=== PATIENT | female | born 1995 | race Caucasian/White ===

== ENCOUNTER 2020-09-20 18:04 | Inpatient (IN) | payer OTHER ==
[~2020-09-20] VITALS: Ht 162.6 cm; Wt 56.2 kg
--- NOTE | 2020-09-20 18:15 | NUR ---
"was called by MD to come in for Abnormal blood and possible transfusion" +BARNETT/Lightheaded Dizzy. Patient a/ox4, breathing even and unlabored, no sob noted, needs attended.
[2020-09-20] MEDS ORDERED: IV NS 0.9% 1,000 ML BAG IV ONE (18:30)
--- NOTE | 2020-09-20 18:38 | NUR ---
iv line established, blood drawn and sent to lab.
[2020-09-20 18:43] LABS: BASOPHILS # (AUTO) 0.1 /CMM (0.0-0.2); BASOPHILS % (AUTO) 0.6 % (0.0-2.0); NEUTROPHILS # (AUTO) 5.1 /CMM (1.8-8.9); WHITE BLOOD COUNT (AUTO) 8.3 K/uL (4.3-11.0)
[2020-09-20 18:46] LABS: EOSINOPHILS % (AUTO) 1.8 % (0.0-6.0); LYMPHOCYTES # (AUTO) 2.2 /CMM (0.8-4.8); LYMPHOCYTES % (AUTO) 26.7 % (20.0-44.0); MEAN CORPUSCULAR HGB CONC 31 g/dl (31.0-36.0); MEAN CORPUSCULAR VOLUME 71 fL (82-100); MONOCYTES # (AUTO) 0.8 /CMM (0.1-1.30); MONOCYTES % (AUTO) 9.1 % (2.0-12.0); NEUTROPHILS % (AUTO) 61.8 % (43.0-81.0); PLATELET COUNT (AUTO) 659 /CMM (150-450); RED BLOOD CELL COUNT(AUTO) 2.71 MIL/uL (4.0-5.2)
[2020-09-20 18:47] LABS: HEMATOCRIT 19 % (33-45); HEMOGLOBIN 5.9 g/dL (11.5-14.8)
[2020-09-20 18:51] LABS: CALCIUM, SERUM 7.9 mg/dL (8.5-10.1); CARBON DIOXIDE 26 mmol/L (21-32); CHLORIDE 103 mmol/L (98-107); CREATININE 0.6 mg/dL (0.6-1.3); GLUCOSE 95 mg/dL (74-106); POTASSIUM 3.5 mmol/L (3.5-5.1); SODIUM SERUM 138 mmol/L (136-145); UREA NITROGEN, BLOOD 4 mg/dL (7-18)
--- NOTE | 2020-09-20 19:14 | NUR ---
COVID SWAB SENT.
--- NOTE | 2020-09-20 19:30 | NUR ---
RECEIVED PT A/OX4 BREATHING EVEN AND UNLABORED; NO SOB NOTED. NO COMPLAINTS OF PAIN OR ANY DISCOMFORT AT THIS TIME. WITH IV ACCESS @ R AC#18, SECURED, PATENT AND FLUSHING WELL. NEEDS ATTENDED. WILL CARRY OUT FOR ANY PENDING MD ORDER.
--- NOTE | 2020-09-20 20:28 | NUR ---
spoke to ROSEMARIE Erazo from point Managment, verbal authorization. informed admitting.
--- NOTE | 2020-09-20 20:31 | NUR ---
REC'D VERBAL AUTH FROM [facility]. PANEL PAGED PER REQUEST
[2020-09-20 20:32] LABS: EOSINOPHILS % (MANUAL) 2 % (0-4); LYMPHOCYTES % (MANUAL) 21 % (16-48); MONOCYTES % (MANUAL) 7 % (0-11.0); NEUTROPHILS % (MANUAL) 70 (42-76)
--- NOTE | 2020-09-20 20:45 | NUR ---
DR. OVALLES SPEAKING WITH ADIS GUTIERREZ NP REGARDING ADMISSION
[2020-09-20] MEDS ORDERED: SOD FERRIC GLUC 125 MG in IV NS 0.9% 100 ML IV SCH (21:30)
[2020-09-20] MEDS ORDERED: MAGNESIUM HYDROXIDE 30 ML UDC PO PRN (21:30)
[2020-09-20] MEDS ORDERED: ONDANSETRON HCL/PF 4 MG/2 ML VIAL IVP PRN (21:30)
[2020-09-20] MEDS ORDERED: IV NS 0.9% 1,000 ML IV PRN (21:30)
[2020-09-20] MEDS ORDERED: MAG HYDROX/AL HYDROX/SIMETH 30 ML UDC PO PRN (21:30)
[2020-09-20] MEDS ORDERED: Z GUARD REMEDY 2 OZ OINT TP PRN (21:30)
--- NOTE | 2020-09-20 21:33 | NUR ---
BED ASSIGNMENT [id number]
[2020-09-20 21:35] VITALS: BP 108/63
--- NOTE | 2020-09-20 21:35 | NUR ---
STARTED BLOOD TRANSFUSION 1 PRBC, VITAL SIGNS WNL. WILL CONTINUE TO MONITOR AND REASSESS FOR ANY TRANSFUSION REACTION.
--- NOTE | 2020-09-20 22:00 | NUR ---
CALLED [facility], SPOKE WITH JAQUELINE MON. PROVIDED ADMISSION REPORT.RN ACKNOWLEDGED.
[2020-09-20 22:45] VITALS: BP 118/73
--- NOTE | 2020-09-20 22:45 | NUR ---
VP SOFTWARE ENGINEERING ADMITTING NOTE PT TRANSPORTED VIA GURNEY TO UNIT AT THIS TIME. PT A/O X4, ABLE TO VERBALIZE NEEDS. NO SOB NOTED. NO S/S OF RESPIRATORY DISTRESS. PT UNDERGOING BLOOD TRANSFUSION. PT DENIES ANY ADVERSE EFFECTS OF TRANSFUSION REACTIONS. PT HAS NO C/O PAIN AT THIS TIME. PT ON EXTERNAL CLINICAL LABORATORY SCIENCE PROFESSOR READING SR 84. SKIN IS INTACT. IV ACCESS NOTED IN RAC #18. IV IS INTACT, PATENT, AND FLUSHING WELL. ORIENTED PT TO STAFF, UNIT, AND ROOM. ALL BELONGINGS ACCOUNTED FOR AND SIGNED PT BELONGINGS LIFE. SAFETY AND ASPIRATION PRECAUTIONS IN PLACE. BED IN LOWEST LOCKED POSITION, HOB ELEVATED, SIDE RAILS UP X2. CALL LIGHT AND TABLE WITHIN REACH. WILL CONTINUE TO MONITOR.
--- NOTE | 2020-09-20 22:45 | NUR ---
PT TRANSFERRED PER [facility]S PROTCOL
[2020-09-21] VITALS (7 sets, daily range): BP systolic 99–118; BP diastolic 56–73
--- NOTE | 2020-09-21 00:35 | NUR ---
BLOOD TRANSFUSION ENDED AT THIS TIME. PT EDUCATION PROVIDED ON BENEFITS AND RISKS OF TRANSFUSION. PT DENIES ANY ADVERSE EFFECTS OF TRANSFUSION REACTIONS SUCH SOB, CHILLS, HEADACHE, FEVER, BACK PAIN, HIVES. PT VERBALIZED UNDERSTANDING. POST TRANSFUSION VITAL SIGNS CHECKED. BP 112/60, HR 86, RR 18, T 98.1, SPO2 99%. WILL CONTINUE TO MONITOR.
[2020-09-21] MEDS: PANTOPRAZOLE 40 MG VIAL IV SCH ×2 (00:49→08:09)
[2020-09-21] MEDS: ACETAMINOPHEN 325 MG TABLET PO PRN ×2 (03:22→10:42)
--- NOTE | 2020-09-21 03:22 | NUR ---
FRUIT HARVEST WORKER PAIN PT C/O HEADACHE AND ACHING BACK PAIN, RATED 3/10 ON PAIN SCALE. VS STABLE. PER PT REQUEST, ADMINISTERED ACETAMINOPHEN 650 MG PO Q6H PRN AT THIS TIME. WILL CONTINUE TO MONITOR.
--- NOTE | 2020-09-21 06:17 | NUR ---
RECREATIONAL COUNSELOR CLOSING NOTE PT IS AWAKE IN BED AT THIS TIME. A/O X4. PT IS AMBULATORY WITH BRP. PT IS STABLE ON ROOM AIR. NO SOB NOTED. NO S/S OF RESPIRATORY DISTRESS. EXTERNAL DEMOLITIONIST READS SINUS TACHYCARDIA 103. IV ACCESS IS INTACT, PATENT, AND FLUSHING WELL. ALL NEEDS HAVE BEEN MET. PAIN MANAGEMENT ADMINISTERED PER ORDER. SAFETY PRECAUTIONS MAINTAINED AT ALL TIMES. BED IN LOWEST LOCKED POSITION, HOB ELEVATED, SIDE RAILS UP X2. CALL LIGHT AND TABLE WITHIN REACH. WILL ENDORSE TO ONCOMING NURSE FOR CONTINUITY OF CARE.
[2020-09-21 06:35] LABS: BASOPHILS % (AUTO) 0.7 % (0.0-2.0); EOSINOPHILS % (AUTO) 2.1 % (0.0-6.0); HEMATOCRIT 21 % (33-45); LYMPHOCYTES # (AUTO) 2.6 /CMM (0.8-4.8); LYMPHOCYTES % (AUTO) 37.7 % (20.0-44.0); MEAN CORPUSCULAR HGB CONC 32 g/dl (31.0-36.0); MEAN CORPUSCULAR VOLUME 74 fL (82-100); MONOCYTES # (AUTO) 0.9 /CMM (0.1-1.30); MONOCYTES % (AUTO) 13.3 % (2.0-12.0); NEUTROPHILS # (AUTO) 3.2 /CMM (1.8-8.9); NEUTROPHILS % (AUTO) 46.2 % (43.0-81.0); PLATELET COUNT (AUTO) 544 /CMM (150-450); RED BLOOD CELL COUNT(AUTO) 2.79 MIL/uL (4.0-5.2); WHITE BLOOD COUNT (AUTO) 6.9 K/uL (4.3-11.0)
[2020-09-21 06:57] LABS: HEMOGLOBIN 6.6 g/dL (11.5-14.8)
--- NOTE | 2020-09-21 07:00 | NUR ---
RECEIVED LAB VALUE FOR HGB 6.6 AND HCT 21, REPORTED BY LAB. READ BACK PROVIDED. NAGA, CHARGE NURSE AND MD MADE AWARE. AWAITING ORDERS. WILL CONTINUE TO MONITOR.
[2020-09-21 07:08] LABS: CALCIUM, SERUM 8.2 mg/dL (8.5-10.1); CREATININE 0.6 mg/dL (0.6-1.3); MAGNESIUM 2.2 mg/dL (1.8-2.4)
[2020-09-21 07:15] LABS: THYROID STIMULATING HORMONE 3.232 uIU/mL (0.358-3.74)
--- NOTE | 2020-09-21 07:51 | NUR ---
PETROL TANKER DRIVER OPENING NOTES Patient awake, alert, and oriented x4. Patient updated on and agreeable to plan of care. Will receive 1 unit blood transfusion once available. Reports still feeling fatigued but no c/o dizziness or lightheadedness. Will continue to monitor. No signs of distress at this time.
[2020-09-21 08:36] LABS: LYMPHOCYTES % (MANUAL) 39 % (16-48); MONOCYTES % (MANUAL) 12 % (0-11.0); NEUTROPHILS % (MANUAL) 49 (42-76)
--- NOTE | 2020-09-21 12:45 | NUR ---
MS RN NOTES Patient tolerated blood transfusion well -no adverse reactions noted. VS WNL throughout.
[2020-09-21] MEDS ORDERED: SOD FERRIC GLUC 125 MG in IV NS 0.9% 100 ML IV SCH (14:00)
[2020-09-21 14:30] LABS: HEMOGLOBIN 8.8 g/dL (11.5-14.8)
[2020-09-21] MEDS ORDERED: FERR325T23 PO (15:08)
--- NOTE | 2020-09-21 16:35 | NUR ---
MS COMMERCIAL ARTIST NOTES Patient discharged in stable condition. VS WNL. No c/o pain or discomfort. IV removed, wristbands removed. This nurse assisted patient to car via wheelchair where pt Thanh took pt home in private car. Patient instructed to start iron supplement as ordered, follow up with primary MD in 1 week for anemia workup, and return to ER in case of emergency. Educational materials on risks of smoking, preventing MRSA, protecting yourself and others from COVID-19 infection, anemia, and how to incorporate iron rich foods into a vegan diet provided.
== END 2020-09-21 16:25 | disposition home or self-care (01) | DRG 663 ==
LOC: ER 18:13 → TELE 21:43 → MED 09-21 09:26
PROVIDERS: ADMIT Registered Nurse; ATTEND Student in an Organized Health Care Education/Training Program
PROC: 30233N1 Transfusion of Nonautologous Red Blood Cells into Peripheral Vein, Percutaneous Approach (ICD-10-PCS; principal; 2020-09-20)
DX: D50.9 Iron deficiency anemia, unspecified (principal); D47.3 Essential (hemorrhagic) thrombocythemia
CPT/HCPCS: 36415; 80048-TC; 80061-TC; 82728-TC; 83540-TC; 83735-TC; 84100-TC; 84443-TC; 84484-TC; 84702-TC; 85025-TC; 85027-TC; 85730-TC; 86850-TC; 87081-TC; C9113; C9803; G0378; J2916; J7030; J7050; P9016

== ENCOUNTER 2020-10-06 12:52 | Emergency (ER) | payer OTHER ==
[~2020-10-06] VITALS: Ht 162.6 cm; Wt 59.4 kg
[~2020-10-06 12:52] MED LIST: FERR325T23 PO
[2020-10-06 12:55] VITALS: BP 116/70
[2020-10-06] MEDS ORDERED: METH4TAB3 PO (13:47)
[2020-10-06] MEDS ORDERED: SULF1TAB48 PO (13:47)
[2020-10-06] MEDS ORDERED: AMOX-430 PO (13:47)
== END 2020-10-06 14:05 | disposition home or self-care (01) ==
LOC: ER 12:52
DX: D17.1 Benign lipomatous neoplasm of skin and subcutaneous tissue of trunk (principal); D64.9 Anemia, unspecified; Z79.899 Other long term (current) drug therapy

== ENCOUNTER 2020-11-07 08:36 | Emergency (ER) | payer OTHER ==
[~2020-11-07] VITALS: Ht 162.6 cm; Wt 54.4 kg
[~2020-11-07 08:36] MED LIST changes: +AMOX-430 PO; +METH4TAB3 PO; +SULF1TAB48 PO
--- NOTE | 2020-11-07 08:50 | NUR ---
pt bib friend, c/o weakness and dizziness x 2 days. 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 no endorsement of heavy vaginal bleeding or any noted blood in stool. states she is anemic and had a blood transfusion last september. stable vitals mining captain. awaiting md heaton.
[2020-11-07] MEDS ORDERED: IV NS 0.9% 1,000 ML BAG IV ONE (09:00)
--- NOTE | 2020-11-07 09:02 | NUR ---
dr hunt at bedside for eval.
[2020-11-07 09:23] LABS: BASOPHILS # (AUTO) 0.3 K/uL (0.0-0.2); BASOPHILS % (AUTO) 4.3 % (0.0-2.0); EOSINOPHILS % (AUTO) 1.6 % (0.0-6.0); HEMATOCRIT 26 % (33-45); HEMOGLOBIN 7.9 g/dL (11.5-14.8); LYMPHOCYTES # (AUTO) 1.4 K/uL (0.8-4.8); LYMPHOCYTES % (AUTO) 22.2 % (20.0-44.0); MEAN CORPUSCULAR HGB CONC 31 g/dl (31.0-36.0); MEAN CORPUSCULAR VOLUME 82 fL (82-100); MONOCYTES # (AUTO) 0.6 K/uL (0.1-1.30); MONOCYTES % (AUTO) 9.1 % (2.0-12.0); NEUTROPHILS # (AUTO) 3.9 K/uL (1.8-8.9); NEUTROPHILS % (AUTO) 62.8 % (43.0-81.0); PLATELET COUNT (AUTO) 530 K/uL (150-450); RED BLOOD CELL COUNT(AUTO) 3.17 MIL/uL (4.0-5.2); WHITE BLOOD COUNT (AUTO) 6.2 K/uL (4.3-11.0)
[2020-11-07 09:29] LABS: BILIRUBIN,URINE Negative (NEGATIVE); COLOR,URINE YELLOW (YELLOW); LEUKOCYTE ESTERASE ,URINE Trace (NEGATIVE); NITRITE, URINE Negative (NEGATIVE); PROTEIN,URINE Negative (NEGATIVE); UGLUCOSE Negative (NEGATIVE); UROBILINOGEN,URINE 0.2 EU/dL (0.2)
[2020-11-07 09:32] LABS: CARBON DIOXIDE 24 mmol/L (21-32); CHLORIDE 106 mmol/L (98-107); CREATININE 0.8 mg/dL (0.6-1.3); GLUCOSE 86 mg/dL (74-106); POTASSIUM 4.4 mmol/L (3.5-5.1); SODIUM SERUM 139 mmol/L (136-145); UREA NITROGEN, BLOOD 9 mg/dL (7-18)
--- NOTE | 2020-11-07 09:38 | NUR ---
radiology at bedside for chest xray.
[2020-11-07 09:50] LABS: BACTERIA,URINE None seen /HPF (None Seen); RBC,URINE NONE SEEN /HPF (0-2); WBC,URINE 0-2 /HPF (0-3)
[2020-11-07 09:51] LABS: THYROID STIMULATING HORMONE 2.725 uIU/mL (0.358-3.74)
[2020-11-07 09:51] LABS: CALCIUM OXALATE CRYSTALS,UR Rare /HPF (None Seen); SQUAMOUS EPITHELIAL CELL,UR None Seen /HPF (None Seen)
[2020-11-07 09:52] LABS: IRON, SERUM 16 ug/dl (50-175); TOTAL IRON BINDING CAPACITY 373 ug/dl (250-450)
[2020-11-07 11:08] VITALS: BP 108/77
--- NOTE | 2020-11-07 11:08 | NUR ---
Patient discharged to home in stable condition. Written and verbal after care instructions given. Patient verbalizes understanding of instruction.IV removed. Catheter intact and site benign. Pressure and 4x4 applied to site. No bleeding noted.
== END 2020-11-07 11:08 | disposition home or self-care (01) ==
LOC: ER 08:40
DX: D50.9 Iron deficiency anemia, unspecified (principal); R55 Syncope and collapse; Z79.899 Other long term (current) drug therapy
CPT/HCPCS: 36415; 71045; 80048; 81001; 83540; 84439; 84443; 84484; 84703; 85025; 85730; 86850; 93005; 96360; 99285; J7030

== ENCOUNTER 2020-12-01 21:15 | Emergency (ER) | payer OTHER ==
[~2020-12-01] VITALS: Ht 162.6 cm; Wt 54.4 kg
[2020-12-01 22:05] LABS: BASOPHILS % (AUTO) 0.4 % (0.0-2.0); EOSINOPHILS % (AUTO) 0.7 % (0.0-6.0); HEMATOCRIT 30 % (33-45); HEMOGLOBIN 9.5 g/dL (11.5-14.8); LYMPHOCYTES # (AUTO) 1.3 K/uL (0.8-4.8); MEAN CORPUSCULAR HGB CONC 32 g/dl (31.0-36.0); MEAN CORPUSCULAR VOLUME 85 fL (82-100); MONOCYTES # (AUTO) 0.8 K/uL (0.1-1.30); MONOCYTES % (AUTO) 8.2 % (2.0-12.0); NEUTROPHILS # (AUTO) 7.2 K/uL (1.8-8.9); NEUTROPHILS % (AUTO) 76.7 % (43.0-81.0); PLATELET COUNT (AUTO) 445 K/uL (150-450); RED BLOOD CELL COUNT(AUTO) 3.51 MIL/uL (4.0-5.2); WHITE BLOOD COUNT (AUTO) 9.3 K/uL (4.3-11.0)
[2020-12-01 22:12] LABS: CALCIUM, SERUM 8.3 mg/dL (8.5-10.1); CREATININE 0.8 mg/dL (0.6-1.3); POTASSIUM 3.6 mmol/L (3.5-5.1)
[2020-12-01 22:18] LABS: ALBUMIN 3.4 g/dL (3.4-5.0); BILIRUBIN,TOTAL 0.1 mg/dL (0.2-1.0); TOTAL PROTEIN, SERUM 6.4 g/dL (6.4-8.2)
[2020-12-01 22:45] LABS: BILIRUBIN,URINE NEGATIVE (NEGATIVE); COLOR,URINE YELLOW (YELLOW); LEUKOCYTE ESTERASE ,URINE NEGATIVE (NEGATIVE); NITRITE, URINE NEGATIVE (NEGATIVE); PROTEIN,URINE NEGATIVE (NEGATIVE); UGLUCOSE NEGATIVE (NEGATIVE); UROBILINOGEN,URINE 0.2 EU/dL (0.2)
--- NOTE | 2020-12-01 23:00 | NUR ---
Pt feeling weak and having abd pain [id number]. Pt aaox4 breathing evenly and unlabored. Pt attached to monitor and pox. Pt admits to having hx of anemia, being vegan, and being unsure if "she is eating enough". pt skin warm, dry, and intact. Pt given blanket and call light within reach
--- NOTE | 2020-12-01 23:35 | NUR ---
Patient discharged to home in stable condition. Written and verbal after care instructions given. Patient verbalizes understanding of instruction. IV removed. Catheter intact and site benign. Pressure and 4x4 applied to site. No bleeding noted. Pt ambulatory with a steady gait
[2020-12-01 23:43] VITALS: BP 115/65
== END 2020-12-01 23:35 | disposition home or self-care (01) ==
LOC: ER 21:17
DX: D64.9 Anemia, unspecified (principal); R53.83 Other fatigue; R10.30 Lower abdominal pain, unspecified; Z79.899 Other long term (current) drug therapy
CPT/HCPCS: 36415; 80048-TC; 80076-TC; 83690-TC; 84703-TC; 85025-TC

== ENCOUNTER 2020-12-28 20:47 | Inpatient (IN) | payer OTHER ==
[~2020-12-28] VITALS: Ht 162.6 cm; Wt 61.6 kg
[2020-12-28] MEDS ORDERED: DICYCLOMINE HCL INJ 20 MG/2 ML AMPUL IM ONE ×2 (23:30→23:42)
[2020-12-28] MEDS ORDERED: IV NS 0.9% 1,000 ML BAG IV ONE (23:30)
[2020-12-28] MEDS ORDERED: ONDANSETRON HCL/PF 4 MG/2 ML VIAL IVP ONE (23:30)
[2020-12-28 23:41] LABS: BASOPHILS % (AUTO) 0.1 % (0.0-2.0); HEMATOCRIT 31 % (33-45); HEMOGLOBIN 9.7 g/dL (11.5-14.8); LYMPHOCYTES # (AUTO) 0.6 K/uL (0.8-4.8); LYMPHOCYTES % (AUTO) 3.6 % (20.0-44.0); MEAN CORPUSCULAR HGB CONC 32 g/dl (31.0-36.0); MEAN CORPUSCULAR VOLUME 85 fL (82-100); MONOCYTES # (AUTO) 0.5 K/uL (0.1-1.30); MONOCYTES % (AUTO) 2.8 % (2.0-12.0); NEUTROPHILS # (AUTO) 16.4 K/uL (1.8-8.9); NEUTROPHILS % (AUTO) 93.5 % (43.0-81.0); PLATELET COUNT (AUTO) 574 K/uL (150-450); RED BLOOD CELL COUNT(AUTO) 3.65 MIL/uL (4.0-5.2); WHITE BLOOD COUNT (AUTO) 17.6 K/uL (4.3-11.0)
[2020-12-28] MEDS ORDERED: ONDANSETRON HCL/PF 4 MG/2 ML VIAL ONE (23:42)
[2020-12-28 23:50] LABS: CALCIUM, SERUM 9.4 mg/dL (8.5-10.1); CREATININE 0.7 mg/dL (0.6-1.3); POTASSIUM 3.6 mmol/L (3.5-5.1)
[2020-12-28 23:56] LABS: ALBUMIN 3.7 g/dL (3.4-5.0); BILIRUBIN,TOTAL 0.1 mg/dL (0.2-1.0); TOTAL PROTEIN, SERUM 7.3 g/dL (6.4-8.2)
[2020-12-29] MEDS ORDERED: MORPHINE SULFATE INJ 2 MG/ML DISP.SYRIN IV ONE
[2020-12-29 00:36] LABS: BILIRUBIN,URINE NEGATIVE (NEGATIVE); COLOR,URINE YELLOW (YELLOW); LEUKOCYTE ESTERASE ,URINE NEGATIVE (NEGATIVE); NITRITE, URINE NEGATIVE (NEGATIVE); PROTEIN,URINE NEGATIVE (NEGATIVE); UGLUCOSE NEGATIVE (NEGATIVE); UROBILINOGEN,URINE 0.2 EU/dL (0.2)
[2020-12-29 00:44] LABS: RBC,URINE 0-2 /HPF (0-2); WBC,URINE 0-2 /HPF (0-3)
[2020-12-29 00:45] LABS: SQUAMOUS EPITHELIAL CELL,UR Few /HPF (None Seen); URINE AMORPHOUS URATE Many /HPF (None Seen)
[2020-12-29] MEDS ORDERED: MORPHINE SULFATE INJ 4 MG/ML DISP.SYRIN ONE (01:14)
[2020-12-29] MEDS ORDERED: LIDOCAINE VISCOUS 2% UD 15 ML UDC ONE (02:11)
[2020-12-29] MEDS ORDERED: LIDOCAINE VISCOUS 2% UD 15 ML UDC MM ONE (02:30)
[2020-12-29 04:25] VITALS: BP 120/71
[2020-12-29] MEDS ORDERED: OMEP20CA15 PO (04:37)
[2020-12-29] MEDS ORDERED: DICY10CA37 PO (04:37)
[2020-12-29] MEDS: MORPHINE SULFATE INJ 4 MG/ML DISP.SYRIN IV PRN ×5 (06:03→21:48)
[2020-12-29] MEDS: ONDANSETRON HCL/PF 4 MG/2 ML VIAL IV PRN ×2 (06:03→11:32)
[2020-12-29] MEDS ORDERED: ACETAMINOPHEN 650 MG/SUPP.RECT RC PRN (06:30)
[2020-12-29] MEDS ORDERED: LIDOCAINE VISCOUS 2% UD 15 ML UDC MM PRN (06:30)
[2020-12-29] MEDS: METRONIDAZOLE 500MG/ NS 100ML 500 MG in PREMIX 1 EA IV SCH ×3 (07:48→21:16)
[2020-12-29] MEDS: LEVOFLOXACIN 500 MG /D5W 100ML 500 MG in PREMIX 1 EA IV SCH (07:48)
[2020-12-29 08:00] VITALS: BP 117/64
[2020-12-29] MEDS: PANTOPRAZOLE 40 MG VIAL IV SCH (08:59)
[2020-12-29] MEDS ORDERED: DIATR MEGLU/DIATRIZOATE SODIUM 120 ML BOTTLE (GASTROGRAPHIN) ONE (13:59)
[2020-12-29 16:00] VITALS: BP 121/68
[2020-12-29 20:00] VITALS: BP 120/74
[2020-12-30] MEDS: METRONIDAZOLE 500MG/ NS 100ML 500 MG in PREMIX 1 EA IV SCH ×3 (04:13→21:32)
[2020-12-30] MEDS: LEVOFLOXACIN 500 MG /D5W 100ML 500 MG in PREMIX 1 EA IV SCH (05:43)
[2020-12-30] MEDS: IV D5/0.45 NACL 1,000 ML IV PRN ×2 (06:00→22:51)
[2020-12-30 07:50] LABS: BASOPHILS % (AUTO) 0.3 % (0.0-2.0); EOSINOPHILS % (AUTO) 0.5 % (0.0-6.0); HEMATOCRIT 25 % (33-45); HEMOGLOBIN 8.2 g/dL (11.5-14.8); LYMPHOCYTES # (AUTO) 1.9 K/uL (0.8-4.8); LYMPHOCYTES % (AUTO) 28.1 % (20.0-44.0); MEAN CORPUSCULAR HGB CONC 33 g/dl (31.0-36.0); MEAN CORPUSCULAR VOLUME 86 fL (82-100); MONOCYTES # (AUTO) 0.9 K/uL (0.1-1.30); MONOCYTES % (AUTO) 12.5 % (2.0-12.0); NEUTROPHILS % (AUTO) 58.6 % (43.0-81.0); PLATELET COUNT (AUTO) 448 K/uL (150-450); RED BLOOD CELL COUNT(AUTO) 2.93 MIL/uL (4.0-5.2); WHITE BLOOD COUNT (AUTO) 6.9 K/uL (4.3-11.0)
[2020-12-30 08:00] VITALS: BP 106/59
[2020-12-30 08:15] LABS: ALBUMIN 2.7 g/dL (3.4-5.0); BILIRUBIN,TOTAL 0.1 mg/dL (0.2-1.0); CREATININE 0.8 mg/dL (0.6-1.3); MAGNESIUM 2.1 mg/dL (1.8-2.4); PHOSPHORUS 2.5 mg/dL (2.5-4.9); POTASSIUM 3.2 mmol/L (3.5-5.1); TOTAL PROTEIN, SERUM 5.5 g/dL (6.4-8.2)
[2020-12-30] MEDS: PANTOPRAZOLE 40 MG VIAL IV SCH (08:54)
[2020-12-30] MEDS: POTASSIUM CL. PREMIX PERIPHER. 50 ML IV SCH ×4 (11:03→19:37)
[2020-12-30] MEDS: MORPHINE SULFATE INJ 4 MG/ML DISP.SYRIN IV PRN (11:52)
[2020-12-30 16:00] VITALS: BP 95/54
[2020-12-30 20:00] VITALS: BP 106/66
[2020-12-31] MEDS: METRONIDAZOLE 500MG/ NS 100ML 500 MG in PREMIX 1 EA IV SCH (05:29)
[2020-12-31] MEDS: LEVOFLOXACIN 500 MG /D5W 100ML 500 MG in PREMIX 1 EA IV SCH (06:34)
[2020-12-31 07:03] LABS: CALCIUM, SERUM 8.1 mg/dL (8.5-10.1); CREATININE 0.7 mg/dL (0.6-1.3); POTASSIUM 3.7 mmol/L (3.5-5.1)
[2020-12-31 08:00] VITALS: BP 91/52
[2020-12-31] MEDS: PANTOPRAZOLE 40 MG VIAL IV SCH (09:12)
[2020-12-31] MEDS ORDERED: METRONIDAZOLE 500 MG TABLET PO SCH (13:00)
[2021-01-01] MEDS ORDERED: LEVOFLOXACIN (250MG) 250 MG TABLET PO SCH (07:00)
[2021-01-01] MEDS ORDERED: PANTOPRAZOLE 40 MG TABLET.DR PO SCH (07:30)
== END 2020-12-31 12:30 | disposition home or self-care (01) | DRG 247 ==
LOC: ER 20:47 → TRANSITION 12-29 02:21 → MED 12-29 03:52
DX: K56.600 Partial intestinal obstruction, unspecified as to cause (principal); E87.1 Hypo-osmolality and hyponatremia; D64.9 Anemia, unspecified; D72.829 Elevated white blood cell count, unspecified; Z20.822 Contact with and (suspected) exposure to COVID-19; F12.90 Cannabis use, unspecified, uncomplicated; D47.3 Essential (hemorrhagic) thrombocythemia; K58.9 Irritable bowel syndrome, unspecified
CPT/HCPCS: 36415; 71045-TC; 74018; 74250-TC; 80048-TC; 80053-TC; 80076-TC; 81001; 83690-TC; 83735-TC; 84100-TC; 84703-TC; 85025-TC; 87081-TC; A4216; C9113; C9803; G0378; J0500; J1956; J2270; J2405; J3480; J3490; J7040; J7050; Q9963

== ENCOUNTER 2021-01-17 18:05 | Inpatient (IN) | payer MEDICAID, OTHER ==
[~2021-01-17] VITALS: Ht 162.6 cm; Wt 59.1 kg
[2021-01-17] MEDS: LEVOFLOXACIN 500 MG /D5W 100ML 500 MG in PREMIX 1 EA IV SCH (02:00)
[2021-01-17] MEDS: METRONIDAZOLE 500MG/ NS 100ML 500 MG in PREMIX 1 EA IV SCH (03:30)
[~2021-01-17 18:05] MED LIST changes: +DICY10CA37 PO; +OMEP20CA15 PO
--- NOTE | 2021-01-17 18:25 | NUR ---
PATIENT PRESENT IN ER FOR C/O DIFFUSE ABDOMINAL PAIN, +NAUSEA THAT STARTED THIS MORNING. PATIENT ALERT AND ORIENTED X4. NO RESPIRATORY DISTRESS NOTED. RESPIRATIONS EVEN AND UNLABORED. AWAITING MD ROMAN
[2021-01-17] MEDS ORDERED: HYDROMORPHONE INJ 2 MG/ML DISP.SYRIN IV ONE (18:30)
[2021-01-17] MEDS ORDERED: ONDANSETRON HCL/PF 4 MG/2 ML VIAL IVP ONE (18:30)
[2021-01-17] MEDS ORDERED: IV NS 0.9% 1,000 ML BAG IV ONE (18:30)
[2021-01-17] MEDS ORDERED: ONDANSETRON HCL/PF 4 MG/2 ML VIAL ONE (18:40)
[2021-01-17] MEDS ORDERED: DIATR MEGLU/DIATRIZOATE SODIUM 30 ML BOTTLE (GASTROGRAPHIN) ONE (18:40)
[2021-01-17] MEDS ORDERED: HYDROMORPHONE 1 MG/1 ML DISP.SYRIN ONE (18:41)
[2021-01-17 19:06] LABS: BASOPHILS % (AUTO) 0.1 % (0.0-2.0); HEMATOCRIT 31 % (33-45); HEMOGLOBIN 9.7 g/dL (11.5-14.8); LYMPHOCYTES # (AUTO) 0.8 K/uL (0.8-4.8); LYMPHOCYTES % (AUTO) 7.1 % (20.0-44.0); MEAN CORPUSCULAR HGB CONC 31 g/dl (31.0-36.0); MEAN CORPUSCULAR VOLUME 86 fL (82-100); MONOCYTES # (AUTO) 0.4 K/uL (0.1-1.30); NEUTROPHILS # (AUTO) 10.5 K/uL (1.8-8.9); NEUTROPHILS % (AUTO) 89.8 % (43.0-81.0); PLATELET COUNT (AUTO) 470 K/uL (150-450); RED BLOOD CELL COUNT(AUTO) 3.62 MIL/uL (4.0-5.2); WHITE BLOOD COUNT (AUTO) 11.6 K/uL (4.3-11.0)
--- NOTE | 2021-01-17 19:07 | NUR ---
URINE AND BLOOD SENT TO LAB
[2021-01-17 19:27] LABS: BILIRUBIN,DIRECT 0.1 mg/dL (0.0-0.2); BILIRUBIN,TOTAL 0.3 mg/dL (0.2-1.0); CALCIUM, SERUM 9.7 mg/dL (8.5-10.1); CREATININE 0.6 mg/dL (0.6-1.3); POTASSIUM 3.5 mmol/L (3.5-5.1); TOTAL PROTEIN, SERUM 7.3 g/dL (6.4-8.2)
[2021-01-17 19:29] LABS: BILIRUBIN,URINE Negative (NEGATIVE); COLOR,URINE YELLOW (YELLOW); LEUKOCYTE ESTERASE ,URINE Negative (NEGATIVE); NITRITE, URINE Negative (NEGATIVE); PH,URINE 5.5 (5.0-8.0); PROTEIN,URINE Negative (NEGATIVE); UGLUCOSE Negative (NEGATIVE); UROBILINOGEN,URINE 0.2 EU/dL (0.2)
[2021-01-17 19:43] LABS: BACTERIA,URINE Rare /HPF (None Seen); RBC,URINE NONE SEEN /HPF (0-2); SQUAMOUS EPITHELIAL CELL,UR Few /HPF (None Seen); WBC,URINE NONE SEEN /HPF (0-3)
--- NOTE | 2021-01-17 21:10 | NUR ---
COVID SWAB VIA [employer] CONSULTANT COLLECTED AND SENT TO LAB
[2021-01-17] MEDS ORDERED: Z GUARD REMEDY 2 OZ OINT TP PRN (22:30)
[2021-01-17] MEDS ORDERED: ACETAMINOPHEN 650 MG/SUPP.RECT RC PRN (22:30)
[2021-01-18] MEDS ORDERED: LIDOCAINE VISCOUS 2% UD 15 ML UDC ONE ×2 (00:09→00:27)
[2021-01-18] MEDS ORDERED: LIDOCAINE VISCOUS 2% UD 15 ML UDC MM ONE (00:30)
--- NOTE | 2021-01-18 00:40 | NUR ---
NGT 14F PLACED TO L NARE. PLACEMENT CHECKED; BUBBLING HEARD.
--- NOTE | 2021-01-18 00:55 | NUR ---
CXR AT BEDSIDE
--- NOTE | 2021-01-18 01:40 | NUR ---
PT'S L NGT CONNECTED TO LOW INTERMITTENT SUCTIONING; TOLERATING WELL
[2021-01-18] MEDS ORDERED: LEVOFLOXACIN 500 MG /D5W 100ML 100 ML IV ONE ×2 (01:46→21:37)
[2021-01-18] MEDS ORDERED: METRONIDAZOLE 500MG/ NS 100ML 100 ML IV ONE ×3 (01:46→20:12)
[2021-01-18] MEDS ORDERED: MORPHINE SULFATE INJ 2 MG/ML DISP.SYRIN ONE ×3 (02:02→10:14)
[2021-01-18] MEDS: IV D5/0.45 NACL 1,000 ML IV PRN ×2 (02:07→17:45)
[2021-01-18] MEDS: MORPHINE SULFATE INJ 2 MG/ML DISP.SYRIN IV PRN ×4 (02:08→20:23)
[2021-01-18] MEDS ORDERED: ONDANSETRON HCL/PF 4 MG/2 ML VIAL ONE ×2 (02:10→10:13)
[2021-01-18] MEDS: ONDANSETRON HCL/PF 4 MG/2 ML VIAL IVP PRN ×2 (02:15→10:18)
[2021-01-18] MEDS: METRONIDAZOLE 500MG/ NS 100ML 500 MG in PREMIX 1 EA IV SCH ×3 (05:24→20:17)
[2021-01-18 05:43] LABS: BASOPHILS % (AUTO) 0.4 % (0.0-2.0); EOSINOPHILS % (AUTO) 0.2 % (0.0-6.0); HEMATOCRIT 28 % (33-45); HEMOGLOBIN 8.7 g/dL (11.5-14.8); LYMPHOCYTES # (AUTO) 1.5 K/uL (0.8-4.8); LYMPHOCYTES % (AUTO) 18.7 % (20.0-44.0); MEAN CORPUSCULAR HGB CONC 31 g/dl (31.0-36.0); MEAN CORPUSCULAR VOLUME 87 fL (82-100); MONOCYTES # (AUTO) 0.6 K/uL (0.1-1.30); MONOCYTES % (AUTO) 7.7 % (2.0-12.0); PLATELET COUNT (AUTO) 384 K/uL (150-450); WHITE BLOOD COUNT (AUTO) 8.2 K/uL (4.3-11.0)
[2021-01-18 05:56] LABS: ALBUMIN 3.3 g/dL (3.4-5.0); BILIRUBIN,TOTAL 0.2 mg/dL (0.2-1.0); CALCIUM, SERUM 8.6 mg/dL (8.5-10.1); CREATININE 0.7 mg/dL (0.6-1.3); POTASSIUM 3.5 mmol/L (3.5-5.1); TOTAL PROTEIN, SERUM 6.2 g/dL (6.4-8.2)
--- NOTE | 2021-01-18 05:56 | NUR ---
PT C/O 8/10 H/A. ADMINISTERED MORPHINE ORDERED. WILL REASSESS IN 30 MINUTES.
--- NOTE | 2021-01-18 08:15 | NUR ---
ASSESSED PT ON BED ASLEEP EAASILY AROUSABLE, NOT IN RESPIRATORY DISTRESS, V/S STABLE, KEPT RESTED AND COMFORTABLE. WILL CONTINUE TO MONITOR.
[2021-01-18] MEDS ORDERED: PANTOPRAZOLE 40 MG VIAL ONE (08:34)
[2021-01-18] MEDS: PANTOPRAZOLE 40 MG VIAL IV SCH (08:37)
--- NOTE | 2021-01-18 08:44 | NUR ---
AT BEDSIDE FOR EVAL.
[2021-01-18] MEDS ORDERED: HYDR-500 PO (09:17)
[2021-01-18] MEDS ORDERED: CYCL5TAB PO (09:17)
[2021-01-18] MEDS ORDERED: DIATR MEGLU/DIATRIZOATE SODIUM 120 ML BOTTLE (GASTROGRAPHIN) ONE (09:33)
[2021-01-18] MEDS ORDERED: IV NS 0.9% 0 ML IV ONE (09:35)
--- NOTE | 2021-01-18 09:36 | NUR ---
PT IS WHEELED TO RADIOLOGY FOR SMALL BOWEL XR.
--- NOTE | 2021-01-18 13:25 | NUR ---
PT REPORTED EPISODE OF BOWEL MOVEMENT.
--- NOTE | 2021-01-18 13:28 | NUR ---
NG TUBE REMOVED PER .
[2021-01-18 16:50] LABS: MAGNESIUM 2.1 mg/dL (1.8-2.4)
--- NOTE | 2021-01-18 16:53 | NUR ---
GOT BED ASSIGNMENT [id number]
--- NOTE | 2021-01-18 17:45 | NUR ---
REPORT GIVEN TO YAA GUZMAN FOR NTAHANIEL.
--- NOTE | 2021-01-18 18:44 | NUR ---
MS/RN RECEIVING NOTES RECEIVED PATIENT A TRANSFER FROM ER [facility]IA [facility]. PATIENT IS ALERT AND ORIENTED X3, ABLE TO MAKE NEEDS KNOWN. STABLE ON ROOM AIR. V/S TAKEN AND RECORDED FOLLOWS: BP-113/66, RR-18, T- 99, HR-93, O2 SAT AT 99% ROOM AIR. WEIGHT AT 130 LBS. AMBULATORY AND STEADY WITH SKIN INTACT. PER MIRTHA(CONTROL SYSTEMS SPECIALIST) PATIENT HAS A BM TODAY AT AROUND 1330. CURRENTLY ON NPO. IV ACCESS ON LEFT AC #20G IS INTACT WITH A RUNNING IV OF D5 1/2 NS @75ML/HR. ORIENTED PATIENT TO THE UNIT. SAFETY PRECAUTIONS OBSERVED: BED LOCKED ON LOWEST POSITION, SIDE RAILS UPX2, CALL LIGHT WITHIN REACH. WILL ENDORSE TO THE NEXT SHIFT.
--- NOTE | 2021-01-18 19:45 | NUR ---
MS RN OPENING NOTES RECEIVED PATIENT SITTING IN BED. PT IS AOx4. NO S/SX OF RESPIRATORY DISTRESS NOTED. PT IS CURRENTLY ON ROOM AIR AND TOLERATING WELL. NO SOB NOTED. IV ACCESS ON L AC #20 IS INTACT, PATENT, AND RUNNING D5 1/2 NS @ 75 ML/HR. SAFETY PRECAUTIONS IN PLACE: BED IN LOWEST, LOCKED POSITION, BRAKES ON, SIDERAILS UP x2. TABLE AND CALL LIGHT WITHIN REACH. WILL CONTINUE TO MONITOR.
[2021-01-18 20:00] VITALS: BP 113/66
--- NOTE | 2021-01-18 20:20 | NUR ---
RN NOTES Complained of abdominal pain- Morphine 2 mg IV given as ordered, V/S stable
[2021-01-18] MEDS: LEVOFLOXACIN 500 MG /D5W 100ML 500 MG in PREMIX 1 EA IV SCH (21:44)
[2021-01-19] MEDS: IV D5/0.45 NACL 1,000 ML IV PRN (01:55)
[2021-01-19] MEDS ORDERED: METRONIDAZOLE 500MG/ NS 100ML 100 ML IV ONE (05:23)
[2021-01-19] MEDS: METRONIDAZOLE 500MG/ NS 100ML 500 MG in PREMIX 1 EA IV SCH ×3 (05:29→20:01)
--- NOTE | 2021-01-19 06:38 | NUR ---
MS RN CLOSING NOTES PATIENT SLEEPING IN BED, AWAKENS TO VERBAL STIMULI. PT IS AOx4. NO S/SX OF RESPIRATORY DISTRESS NOTED. PT IS CURRENTLY ON ROOM AIR AND TOLERATING WELL. NO SOB NOTED. IV ACCESS ON L AC #20 IS INTACT, PATENT, AND RUNNING D5 1/2 NS @ 75 ML/HR. PATIENT HAD PAIN ONCE IN SHIFT AND TREATED WITH MORPHINE. ALL NEEDS MET. PT KEPT CLEAN AND DRY. SAFETY PRECAUTIONS IN PLACE: BED IN LOWEST, LOCKED POSITION, BRAKES ON, SIDERAILS UP x2. TABLE AND CALL LIGHT WITHIN REACH. WILL ENDORSE TO ONCOMING SHIFT FOR NATHANIEL.
--- NOTE | 2021-01-19 07:29 | NUR ---
MS RN OPENING NOTES RECEIVED PATIENT RESTING IN BED, EASY TO AROUSE. A/O x4. STABLE ON ROOM AIR - NO SOB NOTED. NO DISTRESS/DISCOMFORT NOTED. PATIENT IS AMBULATORY. IV ACCESS TO LEFT AC #20 - RUNNING D51/2 NS @ 75 ML/HR. SAFETY MEASURES IN PLACE. CALL LIGHT WITHIN REACH. WILL CONTINUE TO MONITOR.
[2021-01-19] MEDS: PANTOPRAZOLE 40 MG VIAL IV SCH (09:30)
--- NOTE | 2021-01-19 18:32 | NUR ---
MS RN CLOSING NOTE PATIENT CURRENTLY LYING IN BED, AWAKE. AT BEDSIDE. A/O x4. STABLE ON ROOM AIR - NO SOB NOTED. NO DISTRESS/DISCOMFORT NOTED. PATIENT IS AMBULATORY. REGULAR DIET STARTED TODAY. IV ACCESS TO LEFT AC #20 - RUNNING D51/2 NS @ 75 ML/HR. SAFETY MEASURES IN PLACE. CALL LIGHT WITHIN REACH. PENDING GI FOLLOW UP TO CLEAR PATIENT FOR DC. PATIENT IS REQUESTING COLONOSCOPY TO BE DONE AT HOSPITAL BEFORE SHE GOES HOME. WILL ENDORSE TO HEAVY TRUCK MECHANIC NURSE FOR NATHANIEL.
[2021-01-19 20:00] VITALS: BP 100/56
[2021-01-19 20:05] VITALS: BP 100/56
[2021-01-19] MEDS ORDERED: MAG HYDROX/AL HYDROX/SIMETH 30 ML UDC PO PRN (20:30)
[2021-01-19] MEDS: MORPHINE SULFATE INJ 2 MG/ML DISP.SYRIN IV PRN (20:50)
--- NOTE | 2021-01-19 20:52 | NUR ---
RN NOTES Complained of abdominal pain- Morphine 2 mg IV given as ordered, V/S stable
[2021-01-19] MEDS: LEVOFLOXACIN 500 MG /D5W 100ML 500 MG in PREMIX 1 EA IV SCH (21:32)
--- NOTE | 2021-01-20 00:32 | NUR ---
RN NOTES Complained of headache, got an order from [employer] Tylenol 650 mg po , order noted and carried out
[2021-01-20] MEDS: IV D5/0.45 NACL 1,000 ML IV PRN (00:55)
[2021-01-20] MEDS ORDERED: ACETAMINOPHEN 325 MG TABLET PO PRN (01:00)
--- NOTE | 2021-01-20 01:00 | NUR ---
RN NOTES Complained of headache-Tylenol 650mg po given as ordered
[2021-01-20] MEDS: METRONIDAZOLE 500MG/ NS 100ML 500 MG in PREMIX 1 EA IV SCH ×3 (04:44→20:01)
--- NOTE | 2021-01-20 06:33 | NUR ---
RN NOTES Sleeping but arouabl;e, not in distress, no pain noted, call light within reach, siderailsupx2, morning care rendered, pt's needs attended
--- NOTE | 2021-01-20 07:15 | NUR ---
MS RN OPENING NOTES RECEIVED PATIENT ASLEEP ON BED BUT EASILY AROUSABLE. PT IS AOx4. NO S/SX OF RESPIRATORY DISTRESS NOTED. PT IS CURRENTLY ON ROOM AIR AND TOLERATING WELL. NO SOB NOTED. IV ACCESS ON L AC #20 IS INTACT, PATENT, AND RUNNING D5 1/2 NS @ 75 ML/HR, WITH IV INFUSING WELL. SAFETY PRECAUTIONS IN PLACE: BED IN LOWEST, LOCKED POSITION, BRAKES ON, SIDERAILS UP x2. TABLE AND CALL LIGHT WITHIN REACH AT ALL TIMES. WILL CONTINUE TO MONITOR PATIENT.
[2021-01-20 08:00] VITALS: BP 96/61
[2021-01-20] MEDS: PANTOPRAZOLE 40 MG TABLET.DR PO SCH (08:26)
--- NOTE | 2021-01-20 08:30 | NUR ---
MS RN NOTE PATIENT SEEN BY DR. REEVES WITH NO NEW ORDER AT THIS TIME.
[2021-01-20] MEDS ORDERED: hydrOXYzine HCL SYRUP 10 MG/5 ML UDC PO PRN (09:30)
[2021-01-20 16:00] VITALS: BP 94/59
--- NOTE | 2021-01-20 19:00 | NUR ---
MS RN CLOSING NOTES PATIENT ON BED ALERT AND ORIENTED x 4. NO S/SX OF RESPIRATORY DISTRESS NOTED. PT IS CURRENTLY ON ROOM AIR AND TOLERATING WELL. NO SOB NOTED. IV ACCESS ON L AC #20 IS INTACT AND PATENT. SAFETY PRECAUTIONS IN PLACE: BED IN LOWEST, LOCKED POSITION, BRAKES ON, SIDERAILS UP x2. TABLE AND CALL LIGHT WITHIN REACH AT ALL TIMES. WILL ENDORSE TO NEXT SHIFT FOR CONTINUITY OF CARE.
--- NOTE | 2021-01-20 19:41 | NUR ---
RN NOTES PATIENT ON BED ALERT AND ORIENTED x 4. NO S/SX OF RESPIRATORY DISTRESS NOTED. PT IS CURRENTLY ON ROOM AIR AND TOLERATING WELL. NO SOB NOTED. IV ACCESS ON LAC #20 IS INTACT AND PATENT. SAFETY PRECAUTIONS IN PLACE: BED IN LOWEST, LOCKED POSITION, BRAKES ON, SIDERAILS UP x2. TABLE AND CALL LIGHT WITHIN REACH AT ALL TIMES. WILL CONTINUE TO MONITOR.
[2021-01-20 20:00] VITALS: BP 97/60
[2021-01-20] MEDS ORDERED: hydrOXYzine 10 MG TABLET PO PRN (20:00)
[2021-01-20] MEDS: LEVOFLOXACIN 500 MG /D5W 100ML 500 MG in PREMIX 1 EA IV SCH (21:35)
[2021-01-21] MEDS: ONDANSETRON HCL/PF 4 MG/2 ML VIAL IVP PRN ×2 (00:08→21:58)
[2021-01-21] MEDS: MORPHINE SULFATE INJ 2 MG/ML DISP.SYRIN IV PRN (00:09)
[2021-01-21] MEDS: METRONIDAZOLE 500MG/ NS 100ML 500 MG in PREMIX 1 EA IV SCH ×3 (04:15→20:17)
--- NOTE | 2021-01-21 06:26 | NUR ---
RN NOTES PATIENT ON BED ALERT AND ORIENTED x 4. NO S/SX OF RESPIRATORY DISTRESS NOTED. PT IS CURRENTLY ON ROOM AIR AND TOLERATING WELL. NO SOB NOTED. IV ACCESS ON LAC #20 IS INTACT AND PATENT. SAFETY PRECAUTIONS IN PLACE: BED IN LOWEST, LOCKED POSITION, BRAKES ON, SIDERAILS UP x2. TABLE AND CALL LIGHT WITHIN REACH AT ALL TIMES. WILL ENDORSE CARE TO DAY SHIFT NURSE.
--- NOTE | 2021-01-21 07:43 | NUR ---
MS RN OPENING NOTES RECEIVED PATIENT IN BED, ASLEEP, BUT EASILY AWAKEN BY VERBAL AND TACTILE STIMULI. PT IS AOx4. NO S/SX OF RESPIRATORY DISTRESS NOTED. ON ROOM AIR AND TOLERATING WELL. NO SOB NOTED. IV ACCESS ON L AC #20 IS INTACT, PATENT WITH AN ONGOING D5 1/2 NS @ 75 ML/HR, WITH IV INFUSING WELL. SAFETY PRECAUTIONS IN PLACE: BED IN LOWEST, LOCKED POSITION, SIDE RAILS UP x2. TABLE AND CALL LIGHT WITHIN REACH AT ALL TIMES. WILL CONTINUE TO MONITOR ACCORDINGLY.
[2021-01-21 08:00] VITALS: BP 114/65
[2021-01-21] MEDS: PANTOPRAZOLE 40 MG TABLET.DR PO SCH (08:16)
--- NOTE | 2021-01-21 14:20 | NUR ---
RN NOTES INSTRUCTED PATIENT ON CLEAR LIQUIDS DIET THEN NPO POST MIDNIGHT. CONSENT FOR EGD AND COLONOSCOPY SECURED ORDERED.
[2021-01-21 16:02] VITALS: BP 100/59
[2021-01-21] MEDS ORDERED: PEG 3350/NA SULF,BICARB,CL/KCL 4,000 ML BOTTLE PO ONE (18:00)
--- NOTE | 2021-01-21 18:20 | NUR ---
MS RN CLOSING NOTES PATIENT IN BED, AWAKE, PT IS AOx4. NO S/SX OF RESPIRATORY DISTRESS NOTED. ON ROOM AIR AND TOLERATING WELL. NO SOB NOTED. IV ACCESS ON L AC #20 IS INTACT, PATENT WITH AN ONGOING D5 1/2 NS @ 75 ML/HR INFUSING WELL. NO S/SX OF INFILTRATION NOTED. SAFETY PRECAUTIONS IN PLACE: BED IN LOWEST, LOCKED POSITION, SIDE RAILS UP x2. TABLE AND CALL LIGHT WITHIN REACH AT ALL TIMES. ON CLEAR LIQUIDS, NPO POST MIDNIGHT, PATIENT AWARE. ALL NEEDS ATTENDED AND MET. WILL ENDORSE TO ONCOMING SHIFT FOR NATHANIEL.
--- NOTE | 2021-01-21 19:08 | NUR ---
RN OPENING NOTES PATIENT IN BED, AWAKE, PT IS AOx4. NO S/SX OF RESPIRATORY DISTRESS NOTED. ON ROOM AIR AND TOLERATING WELL. NO SOB NOTED. IV ACCESS ON L AC #20 IS INTACT, PATENT WITH AN ONGOING D5 1/2 NS @ 75 ML/HR INFUSING WELL. NO S/SX OF INFILTRATION NOTED. SAFETY PRECAUTIONS IN PLACE: BED IN LOWEST, LOCKED POSITION, SIDE RAILS UP x2. TABLE AND CALL LIGHT WITHIN REACH AT ALL TIMES. ON CLEAR LIQUIDS, NPO POST MIDNIGHT, PATIENT AWARE. ALL NEEDS ATTENDED AND MET. WILL CONTINUE TO MONITOR.
[2021-01-21 20:00] VITALS: BP 95/61
[2021-01-21] MEDS: LEVOFLOXACIN 500 MG /D5W 100ML 500 MG in PREMIX 1 EA IV SCH (21:29)
--- NOTE | 2021-01-21 23:04 | NUR ---
RN NOTES PT REPORTED PAIN AND REDNESS AT IV SITE IV REMOVED. ARM ELEVATED. NEW IV SITE RIGHT AC 20G PATENT INTACT FLUSHING WELL. WILL CONTINUE TO MONITOR.
--- NOTE | 2021-01-21 23:14 | NUR ---
RN NOTES DISCONNECTED PT FROM IV ANTIBIOTIC PT NO LONGER WANTS TO TAKE THE IV ANTIBIOTIC RISK AND BENEFITS EXPLAINED X3 PT REFUSED X3. WILL CONTINUE TO MONITOR.
[2021-01-22] MEDS: ONDANSETRON HCL/PF 4 MG/2 ML VIAL IVP PRN (04:28)
[2021-01-22] MEDS: METRONIDAZOLE 500MG/ NS 100ML 500 MG in PREMIX 1 EA IV SCH ×2 (05:00→13:00)
[2021-01-22] MEDS: SORBITOL SOLUTION 30 ML PO ONE ×2 (05:33→06:17)
--- NOTE | 2021-01-22 06:39 | NUR ---
CLOSING RN NOTES PATIENT IN BED, AWAKE, PT IS AOx4. NO S/SX OF RESPIRATORY DISTRESS NOTED. ON ROOM AIR AND TOLERATING WELL. NO SOB NOTED. IV ACCESS ON L AC #20 IS INTACT, PATENT WITH AN ONGOING D5 1/2 NS @ 75 ML/HR INFUSING WELL. NO S/SX OF INFILTRATION NOTED. SAFETY PRECAUTIONS IN PLACE: BED IN LOWEST, LOCKED POSITION, SIDE RAILS UP x2. TABLE AND CALL LIGHT WITHIN REACH AT ALL TIMES. PT NPO FOR COLONOSCOPY AND EGD. ALL NEEDS ATTENDED AND MET. WILL ENDORSE CARE..
--- NOTE | 2021-01-22 07:38 | NUR ---
RN OPENING NOTES Patient seen comfortably lying in bed, AO X 4, denies any pain or discomfort at this time, no SOB, breathing even and unlabored, no apparent distress noted. Call light left within reach, safety measures maintained, brakes locked, side rails up X2, will monitor closely for any changes.
[2021-01-22 08:00] VITALS: BP 103/56
[2021-01-22] MEDS: PANTOPRAZOLE 40 MG TABLET.DR PO SCH (09:00)
[2021-01-22] MEDS ORDERED: FENTANYL PF 100MCG/2ML AMPUL ONE (09:47)
[2021-01-22 09:50] LABS: BASOPHILS % (AUTO) 0.6 % (0.0-2.0); EOSINOPHILS % (AUTO) 1.1 % (0.0-6.0); HEMATOCRIT 30 % (33-45); HEMOGLOBIN 9.5 g/dL (11.5-14.8); LYMPHOCYTES # (AUTO) 0.9 K/uL (0.8-4.8); LYMPHOCYTES % (AUTO) 19.1 % (20.0-44.0); MEAN CORPUSCULAR HGB CONC 32 g/dl (31.0-36.0); MEAN CORPUSCULAR VOLUME 86 fL (82-100); MONOCYTES # (AUTO) 0.4 K/uL (0.1-1.30); MONOCYTES % (AUTO) 8.6 % (2.0-12.0); NEUTROPHILS # (AUTO) 3.4 K/uL (1.8-8.9); NEUTROPHILS % (AUTO) 70.6 % (43.0-81.0); PLATELET COUNT (AUTO) 380 K/uL (150-450); RED BLOOD CELL COUNT(AUTO) 3.47 MIL/uL (4.0-5.2); WHITE BLOOD COUNT (AUTO) 4.8 K/uL (4.3-11.0)
--- NOTE | 2021-01-22 09:59 | NUR ---
Patient for colonoscopy / EGD, left unit at 9:58am, stable condition.
[2021-01-22 10:17] LABS: CREATININE 0.8 mg/dL (0.6-1.3); POTASSIUM 3.6 mmol/L (3.5-5.1)
--- NOTE | 2021-01-22 13:15 | NUR ---
Patient preferred not to have her IV antibiotics, she said that it is making her feel sick, explained risks and benefits thrice, still refused, will monitor closely for any changes.
[2021-01-22] MEDS: IV D5/0.45 NACL 1,000 ML IV PRN (14:11)
[2021-01-22 16:00] VITALS: BP 96/86
--- NOTE | 2021-01-22 18:45 | NUR ---
Patient for discharge today, no apparent distress noted, denies any pain or discomfort at this time. Patient signed discharge paperworks and inventory list. Health teaching provided, verbalized understanding and gratitude. Patient left at 1840pm, RN and MARKETING LEAD accompanied patient going to the parking lot, left in stable condition.
== END 2021-01-22 19:00 | disposition home or self-care (01) | DRG 247 ==
LOC: MERGE 18:10 → ER 18:10 → TRANSITION 01-18 00:42 → MED 01-18 17:00
PROVIDERS: ADMIT Hospitalist; ATTEND Family Medicine
PROC: 0DBB8ZX Excision of Ileum, Via Natural or Artificial Opening Endoscopic, Diagnostic (ICD-10-PCS; principal; 2021-01-22)
PROC: 0DB98ZX Excision of Duodenum, Via Natural or Artificial Opening Endoscopic, Diagnostic (ICD-10-PCS; 2021-01-22)
PROC: 0DB68ZX Excision of Stomach, Via Natural or Artificial Opening Endoscopic, Diagnostic (ICD-10-PCS; 2021-01-22)
PROC: 0DBP8ZX Excision of Rectum, Via Natural or Artificial Opening Endoscopic, Diagnostic (ICD-10-PCS; 2021-01-22)
PROC: 0DBF8ZX Excision of Right Large Intestine, Via Natural or Artificial Opening Endoscopic, Diagnostic (ICD-10-PCS; 2021-01-22)
PROC: 0DBG8ZX Excision of Left Large Intestine, Via Natural or Artificial Opening Endoscopic, Diagnostic (ICD-10-PCS; 2021-01-22)
DX: K56.600 Partial intestinal obstruction, unspecified as to cause (principal); A09 Infectious gastroenteritis and colitis, unspecified; D47.3 Essential (hemorrhagic) thrombocythemia; F12.90 Cannabis use, unspecified, uncomplicated; D50.9 Iron deficiency anemia, unspecified; D72.829 Elevated white blood cell count, unspecified; K58.9 Irritable bowel syndrome, unspecified; Z20.822 Contact with and (suspected) exposure to COVID-19; D64.9 Anemia, unspecified
CPT/HCPCS: 36415; 71045-TC; 74018; 80048-TC; 80053-TC; 80061-TC; 80076-TC; 81001; 82728-TC; 83540-TC; 83690-TC; 83735-TC; 84100-TC; 84703-TC; 85025-TC; 87081-TC; 88305-TC; 88313-TC; 88342; A4216; C9113; C9803; G0378; J1170; J1956; J2270; J2405; J2704; J3010; J3490; J7030; J7040; Q0177; Q9963

== ENCOUNTER 2021-04-12 21:05 | Emergency (ER) | payer OTHER ==
[~2021-04-12] VITALS: Ht 162.6 cm; Wt 59.0 kg
[~2021-04-12 21:05] MED LIST changes: -AMOX-430 PO; +CYCL5TAB PO; -FERR325T23 PO; +HYDR-500 PO; -METH4TAB3 PO; -SULF1TAB48 PO
--- NOTE | 2021-04-12 21:23 | NUR ---
PT AAOX4. BIBSELF C/O LETHARGIC AND MILD SOB "POSSIBLY ANXIETY." HAD BLOOD DRAWN ON WEDNESDAY AND MADE HER ANXIOUS. PLACED IN BED 3 ON MONITOR AND PULSE OX. NO ACUTE DISTRESS NOTED. VSS.
--- NOTE | 2021-04-12 21:45 | NUR ---
URINE SPECIMEN COLLECTED AND SENT TO LAB.
[2021-04-12] MEDS ORDERED: IV NS 0.9% 1,000 ML BAG IV ONE (22:00)
[2021-04-12 22:14] LABS: BASOPHILS % (AUTO) 0.5 % (0.0-2.0); HEMATOCRIT 28 % (33-45); HEMOGLOBIN 8.5 g/dL (11.5-14.8); LYMPHOCYTES # (AUTO) 2.5 K/uL (0.8-4.8); LYMPHOCYTES % (AUTO) 25.7 % (20.0-44.0); MEAN CORPUSCULAR HGB CONC 31 g/dl (31.0-36.0); MEAN CORPUSCULAR VOLUME 75 fL (82-100); MONOCYTES # (AUTO) 0.8 K/uL (0.1-1.30); MONOCYTES % (AUTO) 8.6 % (2.0-12.0); NEUTROPHILS # (AUTO) 6.2 K/uL (1.8-8.9); NEUTROPHILS % (AUTO) 64.2 % (43.0-81.0); PLATELET COUNT (AUTO) 530 K/uL (150-450); RED BLOOD CELL COUNT(AUTO) 3.65 MIL/uL (4.0-5.2); WHITE BLOOD COUNT (AUTO) 9.7 K/uL (4.3-11.0)
[2021-04-12 22:23] LABS: BILIRUBIN,URINE NEGATIVE (NEGATIVE); COLOR,URINE YELLOW (YELLOW); LEUKOCYTE ESTERASE ,URINE NEGATIVE (NEGATIVE); NITRITE, URINE NEGATIVE (NEGATIVE); PROTEIN,URINE NEGATIVE (NEGATIVE); UGLUCOSE NEGATIVE (NEGATIVE); UROBILINOGEN,URINE 0.2 EU/dL (0.2)
[2021-04-12 22:42] LABS: ALBUMIN 3.9 g/dL (3.4-5.0); BILIRUBIN,TOTAL 0.1 mg/dL (0.2-1.0); CALCIUM, SERUM 8.8 mg/dL (8.5-10.1); CREATININE 0.9 mg/dL (0.6-1.3); POTASSIUM 3.8 mmol/L (3.5-5.1); TOTAL PROTEIN, SERUM 7.4 g/dL (6.4-8.2)
[2021-04-12] MEDS ORDERED: FERR325T23 PO (23:28)
[2021-04-12 23:53] VITALS: BP 122/70
--- NOTE | 2021-04-12 23:54 | NUR ---
Patient discharged to home in stable condition. Written and verbal after care instructions given. Patient verbalizes understanding of instruction.
== END 2021-04-13 00:02 | disposition home or self-care (01) ==
LOC: ER 21:07
DX: R07.89 Other chest pain (principal); F41.9 Anxiety disorder, unspecified; D64.9 Anemia, unspecified; Z88.1 Allergy status to other antibiotic agents; Z88.8 Allergy status to other drugs, medicaments and biological substances; Z79.899 Other long term (current) drug therapy
CPT/HCPCS: 36415; 71045; 80048; 80076; 81003; 84484; 84702; 85025; 85378; 85730; 86850; 93005; 96360; 99285; J7030